=== PATIENT | female | born 1995 | race Caucasian/White ===

== ENCOUNTER → 2016-09-01 | Outpatient (CLI) | payer BC, OTHER ==
[~2016-09-01] MED LIST: B-COTAB18 PO; BIOT1CAP8 PO; FLUO10CA48 PO; LEVO50TA PO; MNC50 PO; OMEG10007 PO; TURM1CAP2 PO; VITATAB19 PO
[2016-09-04 07:27] LABS: CHLAMYDIA TRACH RNA*** NOT DETECTED (NOT DETECTED); GC (NEIS GONORRHOEAE)RNA** NOT DETECTED (NOT DETECTED)
== END | disposition home or self-care (01) ==
LOC: C.LABSPEC 18:09
PROVIDERS: ATTEND Physician Assistant
DX: Z01.419 Encounter for gynecological examination (general) (routine) without abnormal findings (principal)

== ENCOUNTER 2017-02-26 08:06 | Day surgery (SDC) | payer BC, OTHER ==
[2016-10-16 07:51] VITALS: BMI 24.0
[2017-01-17 09:06] VITALS: Ht 172.7 cm; Wt 68.2 kg
[~2017-02-26] VITALS: Ht 172.7 cm; Wt 68.2 kg
[~2017-02-26 08:06] MED LIST changes: +COCONUT OIL PO; +LACTATED RINGER'S 1000ML 1,000 ML IV SCH; +LEVO1IUD INT UTER; -TURM1CAP2 PO; -VITATAB19 PO
[2017-02-26] MEDS ORDERED: FENTANYL CITRATE INJ 50 MCG/1 ML 2 ML VIAL ONE (08:31)
[2017-02-26] MEDS ORDERED: MIDAZOLAM HCL 1 MG/ML 2ML VIAL ONE (08:32)
[2017-02-26 08:41] VITALS: BP 113/66; PULSE 78; TEMP 36.7; O2SAT 100
--- NOTE | 2017-02-26 10:15 | History & Physical Bridge Note ---
H&P Re-Evaluation Bridge Note: I have examined the patient, reviewed the History & Physical and in the interval since the performance of the History & Physical I have noted the following changes of clinical significance: No changes noted
[2017-02-26] MEDS ORDERED: METHYLENE BLUE 0.5% 10 ML VIAL ONE (10:26)
[2017-02-26] MEDS ORDERED: BUPIVACAINE 0.5 % 5 MG/1 ML MPF 30ML VIAL ONE (10:27)
[2017-02-26] MEDS ORDERED: DEXAMETHASONE SOD INJ 4 MG/ML VIAL ONE (11:24)
[2017-02-26] MEDS ORDERED: ONDANSETRON INJ 2 MG/ML 2 ML VIAL ONE (11:24)
[2017-02-26] MEDS ORDERED: CISATRACURIUM BESYLATE IV SOLN 2 MG/ML 10 ML VIAL ONE (11:24)
[2017-02-26] MEDS ORDERED: KETOROLAC TROMETHAMINE 30 MG/ML VIAL ONE (11:24)
[2017-02-26] MEDS ORDERED: LIDOCAINE HCL 2% 2 ML VIAL (20MG/ML) ONE (11:24)
[2017-02-26] MEDS ORDERED: EpHEDrine SULFATE INJ 50 MG/ML AMP ONE (11:24)
[2017-02-26] MEDS ORDERED: NEOSTIGMINE METHYLSULFATE 5 MG/5 ML SYR ONE (11:24)
[2017-02-26] MEDS ORDERED: PROPOFOL IV EMULSION 10 MG/ML 20 ML VIAL IV ONE (11:24)
[2017-02-26] MEDS ORDERED: GLYCOPYRROLATE INJ 0.2 MG/ML VIAL ONE (11:24)
[2017-02-26] MEDS ORDERED: LARYING-O-JET KIT (LTA) ONE (11:24)
[2017-02-26] MEDS ORDERED: SODIUM CHLORIDE 0.9% 1000ML 1,000 ML IV SCH (11:59)
[2017-02-26] MEDS ORDERED: KETOROLAC TROMETHAMINE 30 MG/ML VIAL IV. PRN (12:00)
[2017-02-26] MEDS ORDERED: IBUPROFEN 600 MG TAB PO PRN (12:00)
[2017-02-26] MEDS ORDERED: PROMETHAZINE HCL INJ 25 MG in SODIUM CHLORIDE 0.9% 50ML 50 ML IV PRN (12:00)
[2017-02-26] MEDS ORDERED: ONDANSETRON INJ 2 MG/ML 2 ML VIAL IV PRN (12:00)
[2017-02-26] MEDS ORDERED: OXYCODONE/ACETAMINOPHEN 5-325 TAB PO PRN ×2 (12:00)
--- NOTE | 2017-02-26 12:00 | [facility] Post Operative Brief Note ---
Immediate Operative Summary Operative Date Feb 26, 2017. Pre-Operative Diagnosis Abnormal Menses; Pelvic Mass Post-Operative Diagnosis Same as preop Procedure(s) Performed Dianostic Laparoscopy with Resection of Endometriosis Robot Assist Surgeon Dr. Melendez Roller Machine Operator Surgeon(s) None Estimated Blood Loss 5 ml Findings endometriosis Specimens A. Left and Right Uterosacral Ligament Endometrial Implant Drains None Anesthesia General Complication(s) None Disposition Recovery Room / PACU
[2017-02-26] MEDS ORDERED: MTR600X PO (12:01)
[2017-02-26] MEDS ORDERED: OXYC-57 PO (12:01)
--- NOTE | 2017-02-26 12:01 | Discharge Instructions ---
Discharge Instructions Date of Service Feb 26, 2017. Admission Reason for Admission: Abnormal Menses, Pelvic Mass Discharge Discharge Diagnosis / Problem: pelvic pain Discharge Goals Goal(s): Routine recovery after surgery Activity Recommendations Activity Limitations: per Instructions/Follow-up section . Instructions / Follow-Up Instructions / Follow-Up ACTIVITY RECOMMENDATIONS: * Rest the first 2-3 days. You should be back to your normal activity levels by day 3. * No heavy lifting for 2 weeks. * No intercourse, tampons or douching for 1-2 weeks. * You may shower the next day. * Do not drive anytime that you are taking narcotic pain medicines. RETURN TO SCHOOL/WORK: * May return to school or work after 2-3 days. DIET: Nausea may occur in the immediate post-operative period. If so, take clear liquids such as tea, bouillon, apple juice until all nausea has subsided, then resume usual diet. MEDICATIONS: Resume previous medications unless instructed otherwise by your surgeon. Ibuprofen 200mg 2-3 tablets every 4-6 hours as needed -- OR -- Aleve 2 tablets every 8-12 hours as needed for post-operative discomfort Medications are over the counter. Tylenol may be used if above medications are contraindicated or not preferred. Medication should be taken with food or milk. Do not take on an empty stomach. SPECIAL CARE INSTRUCTIONS: * Check temperature twice daily for one week. report any elevation over 101 degrees. * You may experience some vagina spotting and/or bleeding. This is normal for 1 -2 weeks and should not be heavier than a normal period. If it is unusual in amount, call your physician. * Post-operative discomfort may consist of a sore throat, a "bloated" feeling and pain in the shoulders. these are normal symptoms, which usually only last for 2-3 days. * Remove band-aids tomorrow and shower. There is no need to replace band-aids unless there is drainage or discomfort. FOLLOW UP VISIT: Call your doctor's office for a post-operative 2 week visit if not already scheduled. Current Hospital Diet Patient's current hospital diet: Discharge Diet Recommended Diet: Regular Diet Procedures Procedures Performed: Dianostic Laparoscopy with Resection of Endometriosis Robot Assist Pending Studies Studies pending at discharge: no Medical Emergencies . Who to Call and When: Medical Emergencies: If at any time you feel your situation is an emergency, please call 911 immediately. . Non-Emergent Contact Non-Emergency issues call your: W[employer]arn Sorter . . "Provider Documentation" section prepared by Davis Melendez. . VTE Core Measure Inpt VTE Proph given/why not?: Sharmila Camacho, SCD's
[2017-02-26] MEDS ORDERED: PROMETHAZINE HCL INJ 12.5 MG in SODIUM CHLORIDE 0.9% 50ML 50 ML IV PRN (12:45)
[2017-02-26] MEDS ORDERED: NALOXONE HCL 0.4 MG/1 ML VIAL/CARP IV PRN (12:45)
[2017-02-26] MEDS ORDERED: EpHEDrine SULFATE INJ 50 MG/ML AMP IV PRN (12:45)
[2017-02-26] MEDS ORDERED: FLUMAZENIL 0.1 MG/1 ML 10 ML VIAL IV PRN (12:45)
[2017-02-26] MEDS ORDERED: ATROPINE SULFATE 0.1 MG/ML 5ML SYR IV PRN (12:45)
[2017-02-26] MEDS ORDERED: HYDROmorphone INJ 1 MG/ML SYR IV PRN (12:45)
--- NOTE | 2017-02-26 12:59 | Anesthesiology Progress Note ---
Anesthesia Post Op Note Date & Time Feb 26, 2017 at 12:59 Vital Signs Pain Intensity: 0 Vital Signs Past 12 Hours Date Time Temp Pulse Resp B/P (MAP) Pulse Ox O2 Delivery O2 Flow Rate FiO2 02/26/17 12:50 36.9 69 18 112/53 98 Room Air 02/26/17 12:40 36.9 80 18 105/64 100 Room Air 02/26/17 12:30 66 16 100/72 100 Oxymask 10 02/26/17 12:20 80 16 119/68 100 Oxymask 10 02/26/17 12:13 36.7 79 16 119/63 100 Oxymask 10 02/26/17 08:41 36.7 78 16 113/66 (82) 100 Room Air Notes Mental Status: alert / awake / arousable, participated in evaluation Pt Amnestic to Procedure: Yes Nausea / Vomiting: adequately controlled Pain: adequately controlled Airway Patency, RR, SpO2: stable & adequate BP & HR: stable & adequate Hydration State: stable & adequate Anesthetic Complications: no major complications apparent
[2017-02-26 13:00] VITALS: BP 106/64; PULSE 101; TEMP 36.4; O2SAT 100
--- NOTE | 2017-02-26 13:16 | OPERATIVE REPORT ---
DATE OF OPERATION: 02/26/2017 PREOPERATIVE DIAGNOSIS: Pelvic pain. POSTOPERATIVE DIAGNOSES: Pelvic pain and endometriosis. PROCEDURE: Laparoscopy with resection of endometriosis, robotically assisted. SURGEON: Dr. Melendez. LOADING SHOVEL OILER: None. ESTIMATED BLOOD LOSS: 5 mL. FINDINGS: Endometriosis. SPECIMENS: Left and right uterosacral ligament endometrial implants. DRAINS: None. ANESTHETIC: General. COMPLICATIONS: None. DISPOSITION: Recovery room. DESCRIPTION OF PROCEDURE: The patient was given a general anesthetic, prepped and draped in dorsal lithotomy position. Of note, she did have compression stockings on and SCDs. It had been reviewed with her care associate before that she did not need Lovenox or other blood thinners. A Iverson catheter placed in her bladder an 8 acorn cervical manipulating device attached to her cervix with an Allis clamp. Gloves changed and a subumbilical incision made with scalpel, vertical dissecting down using open Aubrey technique cutting down to subcutaneous fat to the fascia was opened in midline, splitting the rectus muscles and entering the peritoneal cavity. Blunt-tipped Aubrey trocar then placed with the balloon and balloon inflated to allow stabilization. CO2 gas then used to insufflate the abdomen. FINDINGS: Abdomen normal. Deep Trendelenburg position then obtained. In the pelvis, there were 2 lesions of endometriosis, highly suspicious for this, one on the left uterosacral ligament and one on the right uterosacral ligament, they were small powder burn lesions and they did not seem to have any nodules. Ovaries appeared normal. The right ovary did have a simple cyst, fluid filled. Two robotic ports placed, one in the left, one in the right under direct visualization. Robot docked arm #1 was monopolar lidia, arm #2 was a [place]. The procedure was begun by identifying the ureter both on left and right side. The lesions were somewhat near the ureters on each side; however, we were easily able to tent up the lesion using the bipolar [place] and pull it well away from the ureter then this was then resected using the monopolar lidia using no electrosurgery. Both resected spots on the left and the right uterosacral were small and placed on top of the uterus for safekeeping. Hemostasis was excellent on the sites and the ureters could be seen well away from the sites peristalsing after resection as well. We then removed the specimens through the [place] port by pulling the port out while the specimens were in and these were sent to pathology. After irrigation and suction of the pelvis, we also drained the cyst on the right ovary with a simple fluid-filled cyst with the monopolar lidia. Hemostasis was excellent. Robot undocked after instruments were removed, ports removed, gas allowed to escape. Incisions injected with 0.5% Marcaine. Fascia closed with 0 Vicryl, subcutaneous fat irrigated and 4-0 subcuticular Monocryl closures. Dermabond applied. Instruments removed from the cervix and vagina. Iverson catheter removed. Urine was clear. Sponge and instrument counts correct. I attest to the content of the Intraoperative Record and any orders documented therein. Any exception s are noted below.
[2017-02-26 13:30] VITALS: BP 119/68; PULSE 80; O2SAT 99
[2017-02-26 14:00] VITALS: BP 104/62; PULSE 85; TEMP 36.4; O2SAT 99
== END 2017-02-26 14:18 | disposition home or self-care (01) ==
LOC: C.ACU 08:06
PROVIDERS: ATTEND Obstetrics & Gynecology
DX: N94.6 Dysmenorrhea, unspecified (principal); N80.9 Endometriosis, unspecified; R19.00 Intra-abdominal and pelvic swelling, mass and lump, unspecified site; D68.59 Other primary thrombophilia; E03.9 Hypothyroidism, unspecified; Z83.49 Family history of other endocrine, nutritional and metabolic diseases; Z80.3 Family history of malignant neoplasm of breast; Z88.0 Allergy status to penicillin
CPT/HCPCS: 58563; S2900